=== PATIENT | male | born 1980 | race Native Hawaiian/Other Pacific Islander ===

== ENCOUNTER 2016-09-27 11:49 | Day surgery (SDC) | payer SELFPAY ==
[~2016-09-27 11:49] MED LIST: ANCEF/STERILE WATER 2 GM/20 ML IV NR
--- NOTE | 2016-09-27 12:40 | Anesthesia Day of Surgery ---
Anesthesia Day of Surgery - Day of Surgery Patient Examined: Yes Patient H&P Reviewed: Yes Patient is NPO: Yes Beta Blockers: No Cardiac Clearance: No Pulmonary Clearance: No
--- NOTE | 2016-09-27 12:41 | Anesthesia Consultation ---
Anesthesia Consult and Med Hx Date of service: 09/27/16 - Airway Anesthetic Teeth Evaluation: Good ROM Head & Neck: Adequate Mental/Hyoid Distance: Adequate Mallampati Class: Class I Intubation Access Assessment: Good - Pulmonary Exam CTA: Yes - Cardiac Exam Cardiac Exam: RRR - Pre-Operative Health Status ASA Pre-Surgery Classification: ASA1 Proposed Anesthetic Plan: General - Pulmonary Hx Smoking: No Hx Sleep Apnea: No (ARAVIND PRE SCREEN LOW RISK) - Cardiovascular System Hx Hypertension: No - Other Systems Hx Cancer: No
[2016-09-27] MEDS ORDERED: VERSED IV NR (13:00)
[2016-09-27] MEDS ORDERED: NACL 0.9% 1000 ML 1,000 ML IV SCH (13:00)
[2016-09-27] MEDS ORDERED: PEPCID PO NR (13:00)
[2016-09-27] MEDS ORDERED: DIPRIVAN 10 MG/ML IV ONE (14:14)
[2016-09-27] MEDS ORDERED: XYLOCAINE MPF 2% ONE (14:15)
[2016-09-27] MEDS ORDERED: SUBLIMAZE ONE (14:15)
[2016-09-27] MEDS ORDERED: ePHEDrine SULFATE ONE (14:39)
[2016-09-27] MEDS ORDERED: WATER FOR IRRIG STERILE IR ONE ×2 (14:49)
--- NOTE | 2016-09-27 15:07 | Short Stay Summary ---
Short Stay Documentation Date of service: 09/27/16 - History H&P: obtained from office - Allergies and Medications Current Medications: Allergies No Known Allergies Allergy (Verified 09/21/16 11:20) Home Medications Medication Instructions Recorded Confirmed Last Taken Type No Known Home Medications [No 09/21/16 09/21/16 Unknown History Reported Home Medications] Active Medications Cefazolin Sodium (Ancef/Sterile Water 2 Gm/20 Ml) 2 gm IV PREOP NR Stop: 09/27/16 23:59 Famotidine (Pepcid) 20 mg PO PREOP NR Stop: 09/27/16 23:59 Last Admin: 09/27/16 13:06 Dose: 20 mg Fentanyl (Sublimaze) 50 mcg IV Q5MIN PRN PRN Reason: Pain , Severe (7-10) Stop: 09/27/16 18:00 Sodium Chloride (Nacl 0.9% 1000 Ml) 1,000 mls @ 100 mls/hr IV DIRECT SMITA Last Admin: 09/27/16 13:07 Dose: 100 mls/hr Midazolam HCl (Versed) 2 mg IV PREOP NR Stop: 09/27/16 23:59 Last Admin: 09/27/16 13:09 Dose: 2 mg - Brief post op/procedure progress note Date of procedure: 09/27/16 Pre-op diagnosis: BPH, LUTS Procedure: CYSTO, RPG, HYDRODISTENTION (650CC) Anesthesia: GETA Surgeon: ARNIE LARES Pathology: none Condition: stable - Hospital course Hospital course: Bactrim & Lambert on chart - Disposition Condition at discharge: Stable Disposition: DISCHARGED TO HOME OR SELFCARE Short Stay Discharge Plan Follow up with: PRIMARY CARE, [Primary Care Provider] - 7 Days
--- NOTE | 2016-09-27 15:35 | Operative Report ---
PREOPERATIVE DIAGNOSIS: Lower urinary tract symptoms (LUTS). POSTOPERATIVE DIAGNOSES: 1. Lower urinary tract symptoms (LUTS). 2. Benign prostatic hypertrophy. PROCEDURE: Cystoscopy, bilateral retrograde pyelograms, hydrodistention (650 mL). SURGEON: Baron Tripp MD ANESTHESIA: General. ESTIMATED BLOOD LOSS: Minimal. FLUIDS: Crystalloid. COMPLICATIONS: No complications. INDICATIONS: This patient is a 35-year-old gentleman referred by Dr. Nikhil Dalton for evaluation of lower urinary tract symptoms. He has nocturia x 6, nonsmoker. He had been on Flomax in the past with retrograde ejaculation, did not like the results. Prostate exam was benign in June of this year. He was also given a trial of Cipro and Hytrin, still with persistent symptoms, presents now concern for stricture was entertained. DESCRIPTION OF PROCEDURE: The patient was taken to the operative suite, placed in a supine position. After adequate general anesthesia, placed in a dorsal lithotomy position, prepped and draped in a sterile fashion. Pancystourethroscopy was performed with 22 [place] Storz cystoscope. No urethral abnormalities could be appreciated. The patient had a mild enlargement of his prostate somewhat high riding median lobe bladder, no tumors or stones were noted. Both ureteral orifices in normal position. Bilateral retrograde pyelograms were obtained with an 8 Slov[place] Lani catheter and 8 mL of contrast. No filling defects or obstruction. Hydrodistention was performed. Bladder capacity 650 mL. Revaluation of his bladder, no signs of petechiae hemorrhage (no interstitial cystitis). Rectal exam was benign. He was extubated, taken to recovery room. He will go home on Bactrim, [place], oxybutynin. JOB# [id number] [facility]
[2016-09-27] MEDS: SUBLIMAZE IV PRN ×2 (15:41→15:46)
--- NOTE | 2016-09-27 16:05 | Fluoroscopy Report ---
RETROGRADE PYELOGRAM: There is adequate filling of the ureters and intrarenal collecting systems with no filling defects or anatomic abnormalities identified.
[2016-09-27 16:34] VITALS: BP 116/68
[2016-09-27] MEDS ORDERED: NORCO 5/325 PO PRN (16:46)
== END 2016-09-27 17:20 | disposition home or self-care (01) ==
LOC: OR 11:49
PROVIDERS: ATTEND Urology
DX: N40.1 Benign prostatic hyperplasia with lower urinary tract symptoms (principal)
CPT/HCPCS: 52005; 74420; A4217; C1758; J0690; J2250; J2704; J3010; J7030; Q9967